=== PATIENT | female | born 1995 | race Caucasian/White ===

== ENCOUNTER 2017-10-13 09:33 | Emergency (ER) | payer MEDICAID ==
[~2017-10-13] VITALS: Ht 165.1 cm; Wt 55.0 kg
[2017-10-13 09:36] VITALS: BP 109/51; PULSE 68; RESP 18; TEMP 98.2; O2SAT 99
--- NOTE | 2017-10-13 10:08 | PD ---
HPI Chief Complaint: Related Problem Time Seen by Provider: 09:49 Travel History International Travel<30 days: No Contact w/Intl Traveler<30days: No Traveled to known affect area: No History of Present Illness HPI 22-year-old female presents the emergency department with positive test and lower abdominal cramping. Patient is , 1 miscarriage, and is concerned about her current . Last menstrual period was September 04 and it was light. She denies any nausea, vomiting, diarrhea, urinary symptoms , vaginal bleeding or discharge at this time. Pain is 6 out of 10. It is cramping in nature. She has no known drug allergies. PFSH Past Medical History Medical History: Denies Significant Hx Diminished Hearing: No Tetanus Vaccination: Unknown Influenza Vaccination: No ?: LMP: 09/04/17 : 3 Para: 1 Miscarriage: 1 Past Surgical History Other Surgery: Yes (lumpectomy of right breast) Social History Alcohol Use: No Tobacco Use: No Substance Use: No Allergies-Medications (Allergen,Severity, Reaction): Coded Allergies: No Known Allergies (Unverified , 10/13/17) Reported Meds & Prescriptions Reported Meds & Active Scripts Active Keflex (Cephalexin) 500 Mg Capsule 500 Mg PO Q8H Review of Systems Except as stated in HPI: all other systems reviewed are Neg General / Constitutional: No: Fever Eyes: No: Visual changes HENT: No: Headaches Cardiovascular: No: Chest Pain or Discomfort Respiratory: No: Shortness of Breath Gastrointestinal: No: Nausea, Vomiting, Diarrhea, Abdominal Pain Genitourinary: Positive: Pelvic Pain, No: Urgency, Frequency, Dysuria, Discharge, Vaginal Bleeding Musculoskeletal: No: Pain Skin: No Rash Neurologic: No: Weakness Psychiatric: No: Depression Endocrine: No: Polydipsia Hematologic/Lymphatic: No: Easy Bruising Physical Exam Narrative GENERAL: Patient appears in no acute distress per SKIN: Warm and dry. Normal color. Normal turgor. HEAD: Atraumatic. Normocephalic. EYES: Pupils equal and round. No scleral icterus. No injection or drainage. ENT: No nasal bleeding or discharge. Mucous membranes pink and moist. Pharynx is clear. Airways patent. NECK: Trachea midline. Supple nontender CARDIOVASCULAR: Regular rate and rhythm. RESPIRATORY: No accessory muscle use. Clear to auscultation. Breath sounds equal bilaterally. GASTROINTESTINAL: Abdomen soft, mild suprapubic tenderness, nondistended. No point tenderness or rebound. Hepatic and splenic margins not palpable. No CVA tenderness. MUSCULOSKELETAL: Extremities without clubbing, cyanosis, or edema. No obvious deformities. NEUROLOGICAL: Awake and alert. No obvious cranial nerve deficits. Motor grossly within normal limits. Five out of 5 muscle strength in the arms and legs. Normal speech. PSYCHIATRIC: Appropriate mood and affect; insight and judgment normal. Data Data Last Documented VS Vital Signs Date Time Temp Pulse Resp B/P (MAP) Pulse Ox O2 Delivery O2 Flow Rate FiO2 10/13/17 09:36 98.2 68 18 109/51 (70) 99 Orders Orders Beta Hcg (Quant/Titer) (10/13/17 09:50) Complete Blood Count With Diff (10/13/17 09:50) Comprehensive Metabolic Panel (10/13/17 09:50) Complete Rh (10/13/17 09:50) Urinalysis - C+S If Indicated (10/13/17 09:50) Iv Access Insert/Monitor (10/13/17 09:50) Ecg Monitoring (10/13/17 09:50) Urine Culture (10/13/17 10:05) Ceftriaxone Inj (Rocephin Inj) (10/13/17 11:30) Us Pelvis (Ques Pr/Ect)W Trans (10/13/17 ) Ed Discharge Order (10/13/17 13:17) Labs Laboratory Tests Test 10/13/17 10:05 White Blood Count 7.3 TH/MM3 Red Blood Count 4.13 MIL/MM3 Hemoglobin 12.9 GM/DL Hematocrit 36.8 % Mean Corpuscular Volume 89.1 FL Mean Corpuscular Hemoglobin 31.3 PG Mean Corpuscular Hemoglobin Concent 35.1 % Red Cell Distribution Width 12.3 % Platelet Count 258 TH/MM3 Mean Platelet Volume 7.9 FL Neutrophils (%) (Auto) 67.4 % Lymphocytes (%) (Auto) 22.6 % Monocytes (%) (Auto) 9.3 % Eosinophils (%) (Auto) 0.3 % Basophils (%) (Auto) 0.4 % Neutrophils # (Auto) 4.9 TH/MM3 Lymphocytes # (Auto) 1.6 TH/MM3 Monocytes # (Auto) 0.7 TH/MM3 Eosinophils # (Auto) 0.0 TH/MM3 Basophils # (Auto) 0.0 TH/MM3 CBC Comment DIFF FINAL Differential Comment Urine Color YELLOW Urine Turbidity CLOUDY Urine pH 5.5 Urine Specific [place] 1.026 Urine Protein 30 mg/dL Urine Glucose (UA) NEG mg/dL Urine Ketones TRACE mg/dL Urine Occult Blood TRACE Urine Nitrite NEG Urine Bilirubin NEG Urine Urobilinogen LESS THAN 2.0 MG/DL Urine Leukocyte Esterase LARGE Urine RBC 9 /hpf Urine WBC 27 /hpf Urine Squamous Epithelial Cells 65 /hpf Urine Amorphous Sediment RARE Urine Bacteria MANY /hpf Urine Mucus MANY /lpf Microscopic Urinalysis Comment CULTURE INDICATED Blood Urea Nitrogen 10 MG/DL Creatinine 0.56 MG/DL Random Glucose 89 MG/DL Total Protein 7.6 GM/DL Albumin 3.8 GM/DL Calcium Level 8.8 MG/DL Alkaline Phosphatase 56 U/L Aspartate Amino Transf (AST/SGOT) 11 U/L Alanine Aminotransferase (ALT/SGPT) 20 U/L Total Bilirubin 0.7 MG/DL Sodium Level 141 MEQ/L Potassium Level 3.7 MEQ/L Chloride Level 108 MEQ/L Carbon Dioxide Level 25.6 MEQ/L Anion Gap 7 MEQ/L Estimat Glomerular Filtration Rate 134 ML/MIN Human Chorionic Gonadotropin, Quant [id number] MIU/ML [facility] Medical Decision Making Medical Screen Exam Complete: Yes Emergency Medical Condition: Yes Differential Diagnosis Early . Cramping. Possible ectopic. Narrative Course Urine test here is positive. Labs ordered including CBC, CMP, urinalysis, and serum hCG. BB K is ordered. Pelvic ultrasound is ordered to rule out ectopic. CBC is unremarkable. CMP is unremarkable except for chloride of 108, AST of 11, and hCG quantitative of 102,194 Urinalysis highly suggestive of urinary tract infection, appearing cloudy, 30 protein, trace ketones, trace occult blood, large leukocyte esterase with 9 RBCs per high-power field, 27 WBCs per high-power field, many bacteria and mucus. Urine was cultured. Patient is given 1000 mg Rocephin IV. Pelvic ultrasound showed: 1. Single intrauterine gestation corresponding to 7 weeks 1 day. cardiac activity is present with heart rate of 127 bpm. 2. Trace free fluid in the pelvis. Patient discharged by Dr. clay, with Keflex 3 times daily 7 days. Patient to follow-up with reporting consultant. Diagnosis Primary Impression: Qualified Codes: Z3A.01 - Less than 8 weeks gestation of Additional Impression: Urinary tract infection Qualified Codes: N30.00 - Acute cystitis without hematuria Scripts Cephalexin (Keflex) 500 Mg Capsule 500 MG PO Q8H for Infection, #21 CAP 0 Refills Prov: Josh Espinoza MD 10/13/17 Disposition: 01 DISCHARGE HOME Condition: Stable Anthony Gunderson Oct 13, 2017 10:08
[2017-10-13 10:33] LABS: AUTOMATED NEUTROPHIL # 4.9 TH/MM3 (1.8-7.7); BASOPHIL % 0.4 % (0.0-2.0); EOSINOPHIL % 0.3 % (0.0-4.0); HEMATOCRIT 36.8 % (35.0-46.0); HEMOGLOBIN 12.9 GM/DL (11.6-15.3); LYMPH % 22.6 % (9.0-44.0); LYMPHOCYTE # 1.6 TH/MM3 (1.0-4.8); MEAN CELL VOLUME 89.1 FL (80.0-100.0); MEAN CORPUSCULAR HEMOGLOBIN 31.3 PG (27.0-34.0); MEAN CORPUSCULAR HGB CONC 35.1 % (32.0-36.0); MEAN PLATELET VOLUME 7.9 FL (7.0-11.0); MONO % 9.3 % (0.0-8.0); MONOCYTE # 0.7 TH/MM3 (0-0.9); NEUT % 67.4 % (16.0-70.0); PLATELET COUNT 258 TH/MM3 (150-450); RED BLOOD COUNT 4.13 MIL/MM3 (4.00-5.30); RED CELL DISTRIBUTION WIDTH 12.3 % (11.6-17.2); WHITE BLOOD COUNT 7.3 TH/MM3 (4.0-11.0)
[2017-10-13 10:47] LABS: ALBUMIN 3.8 GM/DL (3.4-5.0); ALT (GPT) 20 U/L (10-53); AST (GOT) 11 U/L (15-37); BICARBONATE 25.6 MEQ/L (21.0-32.0); BLOOD UREA NITROGEN 10 MG/DL (7-18); CALCIUM 8.8 MG/DL (8.5-10.1); CHLORIDE 108 MEQ/L (98-107); CREATININE 0.56 MG/DL (0.50-1.00); GLOMERULAR FILTRATION RATE 134 ML/MIN (>89); GLUCOSE,RANDOM 89 MG/DL (74-106); SODIUM (NA) 141 MEQ/L (136-145)
[2017-10-13 11:00] LABS: AMORPHOUS SEDIMENT, URINE RARE; BACTERIA, URINE MANY /hpf; BILIRUBIN, URINE NEG (NEG); BLOOD, URINE TRACE (NEG); GLUCOSE,URINE NEG (NEG); KETONE, URINE TRACE mg/dL (NEG); MUCUS URINE MANY /lpf (OCC); NITRITE,URINE NEG (NEG); PH, URINE 5.5 (5.0-8.5); SQUAMOUS EPITHELIAL CELL URINE 65 /hpf (0-5); URINE COLOR YELLOW (YELLW/STRAW); URINE LEUKOCYTE ESTERASE LARGE (NEG)
[2017-10-13 11:04] LABS: ALKALINE PHOSPHATASE 56 U/L (45-117); TOTAL BILIRUBIN ADULT 0.7 MG/DL (0.2-1.0); TOTAL PROTEIN 7.6 GM/DL (6.4-8.2)
[2017-10-13] MEDS ORDERED: cefTRIAXone INJ 1,000 MG in SODIUM CHLORIDE 0.9% INJ 100 ML IV ONE (11:30)
--- NOTE | 2017-10-13 13:09 | RADRPT ---
EXAM DATE/TIME: 10/13/2017 11:22 [place] COMPARISON: No previous studies available for comparison. INDICATIONS : Pelvic cramping. LAB(S): Beta-hC MEDICAL HISTORY : . Pelvis pain. SURGICAL HISTORY : Breast surgery at age [age]. ENCOUNTER: Initial ACUITY: 1 day PAIN SCORE: 3/10 LOCATION: Bilateral pelvis MEASUREMENTS: UTERUS: 8.7 x 6.4 x 3.9 cm ENDOMETRIAL STRIPE: 12 mm RIGHT OVARY: 3.7 x 3.1 x 2.2 cm LEFT OVARY: Not Visualized. cm FREE FLUID: Yes MADELIN CROWN RUMP LENGTH: 1.0 cm = 7 WKS 1 DAYS FHR: 127 BPM FINDINGS: UTERUS: There is an endometrial gestational sac containing a yolk sac and pole corresponding to 7 weeks 1 day. cardiac activity is present with heart rate of 127 bpm. RIGHT OVARY: Ovary contains no mass with 2.3 x 2.2 x 2.5 cm a probable corpus luteal cyst. LEFT OVARY: Not well visualized. MISCELLANEOUS: No free fluid. CONCLUSION: 1. Single intrauterine gestation corresponding to 7 weeks 1 day. cardiac activity is present wi th heart rate of 127 bpm. 2. Trace free fluid in the pelvis. Paul Cervantes MD on October 13, 2017 at 13:03 Board Certified Radiologist. This report was verified electronically.
[2017-10-13] MEDS ORDERED: CEPH-460 PO (13:19)
--- NOTE | 2017-10-13 13:19 | PD ---
Data Data Last Documented VS Vital Signs Date Time Temp Pulse Resp B/P (MAP) Pulse Ox O2 Delivery O2 Flow Rate FiO2 10/13/17 09:36 98.2 68 18 109/51 (70) 99 Orders Orders Beta Hcg (Quant/Titer) (10/13/17 09:50) Complete Blood Count With Diff (10/13/17 09:50) Comprehensive Metabolic Panel (10/13/17 09:50) Complete Rh (10/13/17 09:50) Urinalysis - C+S If Indicated (10/13/17 09:50) Iv Access Insert/Monitor (10/13/17 09:50) Ecg Monitoring (10/13/17 09:50) Urine Culture (10/13/17 10:05) Ceftriaxone Inj (Rocephin Inj) (10/13/17 11:30) Us Pelvis (Ques Pr/Ect)W Trans (10/13/17 ) Ed Discharge Order (10/13/17 13:17) Labs Laboratory Tests Test 10/13/17 10:05 White Blood Count 7.3 TH/MM3 Red Blood Count 4.13 MIL/MM3 Hemoglobin 12.9 GM/DL Hematocrit 36.8 % Mean Corpuscular Volume 89.1 FL Mean Corpuscular Hemoglobin 31.3 PG Mean Corpuscular Hemoglobin Concent 35.1 % Red Cell Distribution Width 12.3 % Platelet Count 258 TH/MM3 Mean Platelet Volume 7.9 FL Neutrophils (%) (Auto) 67.4 % Lymphocytes (%) (Auto) 22.6 % Monocytes (%) (Auto) 9.3 % Eosinophils (%) (Auto) 0.3 % Basophils (%) (Auto) 0.4 % Neutrophils # (Auto) 4.9 TH/MM3 Lymphocytes # (Auto) 1.6 TH/MM3 Monocytes # (Auto) 0.7 TH/MM3 Eosinophils # (Auto) 0.0 TH/MM3 Basophils # (Auto) 0.0 TH/MM3 CBC Comment DIFF FINAL Differential Comment Urine Color YELLOW Urine Turbidity CLOUDY Urine pH 5.5 Urine Specific [place] 1.026 Urine Protein 30 mg/dL Urine Glucose (UA) NEG mg/dL Urine Ketones TRACE mg/dL Urine Occult Blood TRACE Urine Nitrite NEG Urine Bilirubin NEG Urine Urobilinogen LESS THAN 2.0 MG/DL Urine Leukocyte Esterase LARGE Urine RBC 9 /hpf Urine WBC 27 /hpf Urine Squamous Epithelial Cells 65 /hpf Urine Amorphous Sediment RARE Urine Bacteria MANY /hpf Urine Mucus MANY /lpf Microscopic Urinalysis Comment CULTURE INDICATED Blood Urea Nitrogen 10 MG/DL Creatinine 0.56 MG/DL Random Glucose 89 MG/DL Total Protein 7.6 GM/DL Albumin 3.8 GM/DL Calcium Level 8.8 MG/DL Alkaline Phosphatase 56 U/L Aspartate Amino Transf (AST/SGOT) 11 U/L Alanine Aminotransferase (ALT/SGPT) 20 U/L Total Bilirubin 0.7 MG/DL Sodium Level 141 MEQ/L Potassium Level 3.7 MEQ/L Chloride Level 108 MEQ/L Carbon Dioxide Level 25.6 MEQ/L Anion Gap 7 MEQ/L Estimat Glomerular Filtration Rate 134 ML/MIN Human Chorionic Gonadotropin, Quant [id number] MIU/ML MDM Supervised Visit with STIVEN: Yes Narrative Course The history, exam, and medical decision-making in the associated mid-level provider note were completed with my assistance. I reviewed and agree with the findings presented. I attest that I had a [id number] encounter with the patient on the same day, and personally performed and documented my assessment and findings in the medical record. *My assessment and Findings: 22-year-old woman, , abdominal pain, ultrasound shows intrauterine with good heartbeat. UA with some pyuria. Recommend antibiotic treatment. Recommend outpatient follow-up. Diagnosis Primary Impression: Additional Impression: Urinary tract infection Qualified Codes: N30.00 - Acute cystitis without hematuria Additional Instruction: Take antibiotics as prescribed. Take [id number] vitamins. Follow-up with her primary doctor in the next 2-4 days. Med/Other Pt SpecificInfo: Prescription(s) given Scripts Cephalexin (Keflex) 500 Mg Capsule 500 MG PO Q8H for Infection, #21 CAP 0 Refills Prov: Josh Espinoza MD 10/13/17 Disposition: 01 DISCHARGE HOME Condition: Stable Josh Espinoza MD Oct 13, 2017 13:19
== END 2017-10-13 14:36 | disposition home or self-care (01) ==
LOC: NEPD 09:33
DX: O23.91 Unspecified genitourinary tract infection in pregnancy, first trimester (principal); Z3A.01 Less than 8 weeks gestation of pregnancy
CPT/HCPCS: 76700; 76817; 80053; 81001; 84702; 85025; 86901; 87086; 96365; 99284; J0696

== ENCOUNTER → 2017-12-08 | Outpatient (CLI) | payer OTHER ==
[~2017-12-08] MED LIST: CEPH-460 PO
[2017-12-08 12:35] LABS: BASOPHIL % 0.7 % (0.0-2.0); EOSINOPHIL % 0.8 % (0.0-4.0); HEMOGLOBIN 11.2 GM/DL (11.6-15.3); LYMPH % 26.7 % (9.0-44.0); LYMPHOCYTE # 1.2 TH/MM3 (1.0-4.8); MEAN CELL VOLUME 89.4 FL (80.0-100.0); MEAN CORPUSCULAR HEMOGLOBIN 32.2 PG (27.0-34.0); MEAN PLATELET VOLUME 7.7 FL (7.0-11.0); MONOCYTE # 0.3 TH/MM3 (0-0.9); NEUT % 65.8 % (16.0-70.0); PLATELET COUNT 252 TH/MM3 (150-450); RED BLOOD COUNT 3.47 MIL/MM3 (4.00-5.30); RED CELL DISTRIBUTION WIDTH 12.9 % (11.6-17.2); WHITE BLOOD COUNT 4.5 TH/MM3 (4.0-11.0)
== END ==
LOC: ELAB 10:26
PROVIDERS: ATTEND Advanced Practice Midwife
DX: Z34.01 Encounter for supervision of normal first pregnancy, first trimester (principal)
CPT/HCPCS: 36415; 84443; 85025; 86592; 86762; 86787; 86850; 86900; 86901; 87086; 87340

== ENCOUNTER 2018-05-20 06:21 | Inpatient (IN) ==
[2018-05-20] MEDS ORDERED: Oxytocin 30 Units/500ml Premix 30 UNITS/500 ML BAG ONE (06:36)
[2018-05-20] MEDS ORDERED: Lidocaine 1% Inj 50 ML Vial ONE (06:36)
[2018-05-20] MEDS ORDERED: Sod Chloride 0.9% Inj 1,000 ML IV.CONT PRN (07:10)
[2018-05-20] MEDS ORDERED: fentaNYL Citrate Inj 100 MCG/2 ML Ampul IV.PUSH PRN ×2 (07:10)
[2018-05-20] MEDS ORDERED: Naloxone Inj 0.4 MG/ML Vial IV.PUSH PRN ×2 (07:10→08:46)
[2018-05-20] MEDS ORDERED: Sodium Chlor 0.9% Inj 500 ML IV.SIG PRN (07:10)
[2018-05-20] MEDS ORDERED: Oxytocin 30 Units/500ml Premix 30 UNITS/500 ML BAG IV.SIG ONE (07:10)
[2018-05-20 07:11] LABS: Baso % (Auto) 0.3 % (0.0-2.0); Eos % (Auto) 0.4 % (0.0-4.0); Hemoglobin 11.1 gm/dL (11.6-15.3); Lymph # (Auto) 1.9 th/mm3 (1.0-4.8); Lymph % (Auto) 19.9 % (9.0-44.0); Mean Corpuscular HGB Conc 35.7 % (32.0-36.0); Mean Corpuscular Hemoglobin 32.3 pg (27.0-34.0); Mean Corpuscular Volume 90.3 fL (80.0-100.0); Mean Platelet Volume 8.2 fL (7.0-11.0); Mono # (Auto) 0.7 th/mm3 (0.0-0.9); Neut # (Auto) 6.8 th/mm3 (1.8-7.7); Neut % (Auto) 72.4 % (16.0-70.0); Platelet Count 212 th/mm3 (150-450); Red Blood Count 3.43 mil/mm3 (4.00-5.30); Red Cell Distribution Width 12.9 % (11.6-17.2); White Blood Count 9.3 th/mm3 (4.0-11.0)
[2018-05-20] MEDS ORDERED: Sodium Chloride 0.9% 2 ML Flush PRN IV.FLUSH (07:15)
[2018-05-20] MEDS ORDERED: Citric Acid/Sodium Citrate Liq 30 ML UDC PO SCH (07:15)
--- NOTE | 2018-05-20 07:17 | P.HPOB ---
History of Present Illness Primary Care Physician: NOT REQUIRED History of Present Illness: 22-year-old 2 para 1 at 38+ wks who comes with contractions and report of ruptured membranes last night between 8 and 9 PM. She denies bleeding. care [facility] provided by [facility]. It has been uncomplicated. Her first was a term vaginal delivery without complication. She is GBS negative. - Inpatient Certification I certify that the inpatient services were ordered in accordance with Medicare regulations governing the order. This includes certification that hospital inpatient services are reasonable and necessary and in the case of services not specified as inpatient-only under 42 CFR 419.22(n), that they are appropriately provided as inpatient services in accordance to with the 2-midnight benchmark under 43 CFR 412.3(e) Estimated Total Length of Stay (Days): 3 Plans for Post Hospital Care: Home Review of Systems All other systems reviewed negative except as stated in HPI PMFSH - Medical / Surgical Hx Neg / Unobtainable Medical Problems Denied: Yes Surgical History: No Previous Surgery - Immunization History Hx Influenza Vaccine This Season: Yes Medications and Allergies Active Medications: Active Medications Citric Acid/Sodium Citrate (Sodium Citrate/Citric Acid Liq) 30 ml PO ACCOUNTS ADMINISTRATOR SANDY Stop: 05/24/18 07:14 Fentanyl Citrate (Fentanyl Inj) 50 mcg IV.PUSH Q1H PRN PRN Reason: Pain Scale 3 - 5 Fentanyl Citrate (Fentanyl Inj) 100 mcg IV.PUSH Q1H PRN PRN Reason: PAIN SCALE 6 TO 10 Lactated Ringer's (Lr 1000 Ml Inj) 1,000 mls @ 125 mls/hr IV.CONT .Q8H SANDY Sodium Chloride (Ns Inj) 500 mls @ 1,000 mls/hr IV.SIG UNSCH PRN PRN Reason: SEE LABEL COMMENTS Sodium Chloride (Ns Inj) 1,000 mls @ 100 mls/hr IV.CONT .Q10H PRN PRN Reason: SEE LABEL COMMENTS Oxytocin (Pitocin 30 Units/Ns 500 Ml Premix) 30 units in 500 mls @ 999 mls/hr IV.SIG BOLUS ONE Stop: 05/20/18 07:40 Lactated Ringer's (Lr 1000 Ml Inj) 1,000 mls @ 3,000 mls/hr IV.SIG UNSCH PRN PRN Reason: compromise or epidural Lidocaine HCl (Xylocaine 1% Inj) 0.1 ml I-DERMAL PRN PRN PRN Reason: For IV start Stop: 05/23/18 07:09 Lidocaine HCl (Xylocaine 1% Inj) 10 ml INFILTRATN PRN PRN PRN Reason: For episiotomy repair Stop: 05/22/18 07:09 Mineral Oil (Muri-Lube Oil) 10 ml TOPICAL PRN PRN PRN Reason: PRN perineal massage Naloxone HCl (Narcan Inj) 0.1 mg IV.PUSH Q2M PRN PRN Reason: for opiate reversal Ondansetron HCl (Zofran Inj) 4 mg IV.PUSH Q6H PRN PRN Reason: NAUSEA OR VOMITING Allergies Allergy/AdvReac Type Severity Reaction Status Date / Time No Known Allergies Allergy Unverified 10/13/17 09:50 Home Medications Medication Instructions Recorded Confirmed Type No Known Home Medications 05/20/18 05/20/18 History Exam Vital signs: Vital Signs 05/20/18 06:51 05/20/18 07:00 Temperature 97.4 F L Pulse Rate 87 Blood Pressure 132/97 H Intake & Output 05/19/18 05/20/18 05/20/18 18:59 06:59 18:59 Weight 68.039 kg Narrative: GENERAL: Well-nourished, well-developed patient. SKIN: Warm and dry. HEAD: Normocephalic and atraumatic. EYES: No scleral icterus. No injection or drainage. ENT: No nasal drainage noted. Mucous membranes pink. Airway patent. NECK: Supple, trachea midline. No JVD. CARDIOVASCULAR: Regular rate and rhythm without murmurs, gallops, or rubs. RESPIRATORY: Breath sounds equal bilaterally. No accessory muscle use. ABDOMEN/GI: Abdomen soft, non-tender, bowel sounds present, no rebound, no guarding Gravid to [-] weeks size Fundal Height: [-] GENITOURINARY: External Genitalia: intact and normal in appearance BUS glands: [-] Cervix: [-] Dilatation: [7-] Effacement: [-100] Station: [--2] Presentation: [-vtx] Membranes: [ ruptured] Uterine Contractions: [-q2-3] FHT's: Category: [1-] Baseline: [-] Reactive: [y-] Variability: [-] Decels: [-] EXTREMITIES: No cyanosis or edema. BACK: Nontender without obvious deformity. No CVA tenderness. NEUROLOGICAL: Awake and alert. Motor and sensory grossly within normal limits. Five out of 5 muscle strength in all muscle groups. Normal speech. Results - Labs CBC & Chem 7: 05/20/18 06:30 Labs: Laboratory Results - last 24 hr 05/20/18 06:30 WBC 9.3 RBC 3.43 L Hgb 11.1 L Hct 31.0 L MCV 90.3 MCH 32.3 MCHC 35.7 RDW 12.9 Plt Count 212 MPV 8.2 Neut % (Auto) 72.4 H Lymph % (Auto) 19.9 Rankin % (Auto) 7.0 Eos % (Auto) 0.4 Baso % (Auto) 0.3 Neut # (Auto) 6.8 Lymph # (Auto) 1.9 [place] # (Auto) 0.7 Eos # (Auto) 0.0 Baso # (Auto) 0.0 WBC Differential . Differential Comment Auto diff final Caprini VTE Risk Assessment Caprini VTE Risk Assessment: No/Low Risk (score <= 1) Caprini Risk Assessment Model: Point Value = 1 Point Value = 2 Point Value = 3 Point Value = 5 Age 41-60 Minor surgery BMI > 25 kg/m2 Swollen legs Varicose veins or History of unexplained or recurrent spontaneous Oral contraceptives or hormone replacement Sepsis (< 1 month) Serious lung disease, including pneumonia (< 1 month) Abnormal pulmonary function Acute myocardial infarction Congestive heart failure (< 1 month) History of inflammatory bowel disease Medical patient at bed rest Age 61-74 Arthroscopic surgery Major open surgery (> 45 min) Laparoscopic surgery (> 45 min) Malignancy Confined to bed (> 72 hours) Immobilizing plaster cast Central venous access Age >= 75 History of VTE Family history of VTE Factor V Leiden Prothrombin [id number] Lupus anticoagulant Anticardiolipin antibodies Elevated serum homocysteine Heparin-induced thrombocytopenia Other congenital or acquired thrombophilia Stroke (< 1 month) Elective arthroplasty Hip, pelvis, or leg fracture Acute spinal cord injury (< 1 month) Prophylaxis Regimen: Total Risk Factor Score Risk Level Prophylaxis Regimen 0-1 Low Early ambulation 2 Moderate Order ONE of the following: *Sequential Compression Device (SCD) *Heparin 5000 units SQ BID 3-4 Higher Order ONE of the following medications: *Heparin 5000 units SQ TID *Enoxaparin/Lovenox 40 mg SQ daily (WT < 150 kg, CrCl > 30 mL/min) *Enoxaparin/Lovenox 30 mg SQ daily (WT < 150 kg, CrCl > 10-29 mL/min) *Enoxaparin/Lovenox 30 mg SQ BID (WT < 150 kg, CrCl > 30 mL/min) AND/OR *Sequential Compression Device (SCD) 5 or more Highest Order ONE of the following medications: *Heparin 5000 units SQ TID (Preferred with Epidurals) *Enoxaparin/Lovenox 40 mg SQ daily (WT < 150 kg, CrCl > 30 mL/min) *Enoxaparin/Lovenox 30 mg SQ daily (WT < 150 kg, CrCl > 10-29 mL/min) *Enoxaparin/Lovenox 30 mg SQ BID (WT < 150 kg, CrCl > 30 mL/min) AND *Sequential Compression Device (SCD) Assessment and Plan - Plan Assessment: Term intrauterine in active labor, category 1 heart rate Plan: Expect vaginal delivery.
[2018-05-20] MEDS ORDERED: Oxytocin 30 Units/500ml Premix 30 UNITS/500 ML BAG IV.CONT PRN (08:46)
[2018-05-20] MEDS ORDERED: Bisacodyl 10 MG Supp RECTAL PRN (08:46)
[2018-05-20] MEDS ORDERED: Witch Hazel 50%/Glyderin 12.5% 40 Pad Jar RECTAL PRN (08:46)
[2018-05-20] MEDS ORDERED: Benzocaine 20% Top Spray 60 ML Can TOPICAL PRN (08:46)
[2018-05-20] MEDS ORDERED: Zolpidem Tartrate 5 MG Tablet PO PRN (08:46)
--- NOTE | 2018-05-20 08:52 | P.OBDELI ---
Weeks Gestation: 38 Patient Started Active Labor: Yes Active Labor Start Date: 05/20/18 Medical Induction of Labor: No Artificial Rupture of Membrane: No Anesthesia: None Episiotomy: none Vaginal Delivery: Normal, Spontaneous Presentation: Occiput anterior Nuchal Cord: None Delayed Cord Clamping (45 sec): Yes Placenta: Spontaneous delivery, Intact, 3 vessel cord Laceration: 1 deg Estimated blood loss (mL): 200 Infant: Male Male A Infant Delivery Date: 05/20/18 Infant Delivery Time: 08:35 Weight: 3.565 kg score (1 min): 9 score (5 min): 9
[2018-05-20] MEDS: Senna/Docusate Sodium 8.6/50 MG Tablet PO SCH ×2 (10:28→21:20)
[2018-05-20] MEDS: Sodium Chloride 0.9% 2 ML Flush BID IV.FLUSH SCH ×2 (10:28→21:21)
[2018-05-20] MEDS ORDERED: Diphtheria/Tetanus/Pertussis Vaccine Inj 0.5 ML Syringe IM ONE (16:00)
[2018-05-20] MEDS ORDERED: Measles/Mumps/Rubella Vaccine Inj 0.5 ML Vial SQ ONE (16:00)
[2018-05-20 17:33] LABS: Amphetamine Urine With Conf Neg (Neg); Benzodiazepine Urine With Conf Neg (Neg)
[2018-05-20 17:35] LABS: Bilirubin,Urine Negative (Negative); Clarity,Urine Hazy (Clear); Color,Urine Red (Yellw/Straw); Glucose,Urine (UA) 50 mg/dL (Negative); Leukocyte Esterase,Urine Small (Negative); Mucus,Urine Few /lpf (Occasional); Nitrite,Urine Negative (Negative); Specific Gravity,Urine 1.008 (1.002-1.035)
[2018-05-20] MEDS: Acetaminophen 325 MG Tablet PO PRN (17:45)
[2018-05-21] MEDS: Acetaminophen 325 MG Tablet PO PRN (03:20)
--- NOTE | 2018-05-21 08:15 | P.PNOB ---
Subjective Post day: 1 Interval history: Patient is a 22 y/o at 38/3 weeks gestation. Patient is day 1 after . Patient's pain is well-controlled. Patient reports eating and drinking without any nausea or vomiting. Patient reports minimal bleeding. Patient has passed gas but no bowel movements. Patient is walking without lower extremity pain or shortness of breath. Patient reports desire for contraception. She denies any chest pain. Objective Vital Signs/I&O: Vital Signs 05/20/18 08:49 05/20/18 09:01 05/20/18 09:09 Temperature 97.7 F Pulse Rate 104 H 104 H Respiratory Rate 18 18 Blood Pressure 122/67 112/64 05/20/18 09:16 05/20/18 09:30 05/20/18 09:45 Temperature Pulse Rate 87 81 Respiratory Rate 18 18 Blood Pressure 110/58 L 115/67 05/20/18 10:10 05/20/18 18:55 Temperature 98.0 F 98.0 F Pulse Rate 74 76 Respiratory Rate 16 17 Blood Pressure 112/56 L 100/52 L Result Diagrams: 05/20/18 06:30 Objective Remarks: GENERAL: Well-nourished, well-developed patient. CARDIOVASCULAR: Regular rate and rhythm without murmurs, gallops, or rubs. RESPIRATORY: Breath sounds equal bilaterally. No accessory muscle use. ABDOMEN/GI: Abdomen soft, non-tender. Fundus: Firm, non-tender at umbilicus. GENITOURINARY: Light to moderate bleeding. EXTREMITIES: No cyanosis or edema, non-tender, without signs of DVT. Medications and IVs: Active Medications Acetaminophen (Tylenol) 650 mg PO Q4H PRN PRN Reason: PAIN SCALE 1 TO 2 Last Admin: 05/21/18 03:20 Dose: 650 mg Al Hydroxide/Mg Hydroxide (Milk Of Magnesia Liq) 30 ml PO Q12H PRN PRN Reason: Mild Constipation Benzocaine (Americaine 20% [place]) 1 spray TOPICAL Q4H PRN PRN Reason: For Perineum Discomfort Bisacodyl (Dulcolax Supp) 10 mg RECTAL DAILY PRN PRN Reason: SEVERE CONSITIPATION Oxytocin (Pitocin 30 Units/Ns 500 Ml Premix) 30 units in 500 mls @ 100 mls/hr IV.CONT UNSCH PRN PRN Reason: Heavy bleeding Ibuprofen (Motrin) 800 mg PO Q8H PRN PRN Reason: For Cramping Last Admin: 05/21/18 03:20 Dose: 800 mg Lactulose (Lactulose Liq) 30 ml PO DAILY PRN PRN Reason: SEVERE CONSITIPATION Naloxone HCl (Narcan Inj) 0.1 mg IV.PUSH Q2M PRN PRN Reason: for opiate reversal Ondansetron HCl (Zofran Odt) 4 mg PO Q6H PRN PRN Reason: NAUSEA OR VOMITING Senna/Docusate Sodium (Qian-Colace) 1 tab PO BID [facility] Last Admin: 05/20/18 21:20 Dose: 1 tab Sennosides (Senokot) 17.2 mg PO Q12H PRN PRN Reason: Moderate Constipation Sodium Chloride (Ns Flush) 2 ml IV.FLUSH BID [facility] Last Admin: 05/20/18 21:21 Dose: 2 ml Sodium Chloride (Ns Flush) 2 ml IV.FLUSH PRN PRN PRN Reason: FLUSH AFTER USING IV ACCESS Witch Crystal/Glycerin (Tucks Pads) 1 applicatio RECTAL QID PRN PRN Reason: HEMORRHOIDS Zolpidem Tartrate (Ambien) 5 mg PO HS PRN PRN Reason: SLEEP Assessment and Plan - Plan Patient is a 22 year-old delivered at 38/3 weeks gestation. Patient is day 1 after . Continue routine care. Motrin and Tylenol as needed for pain. Encourage OOB Pelvic rest for 6 weeks will need follow-up appointment at that time. Contraception: Patient considering options. appropriately. Anticipate discharge tomorrow phuw Dr. Lexi juan OB attending, Dr. Mcclain
[2018-05-21] MEDS: Senna/Docusate Sodium 8.6/50 MG Tablet PO SCH ×2 (08:45→20:08)
[2018-05-21] MEDS: Sodium Chloride 0.9% 2 ML Flush BID IV.FLUSH SCH (20:09)
[2018-05-21] MEDS ORDERED: Diphtheria/Tetanus/Pertussis Vaccine Inj 0.5 ML Syringe IM ONE (22:45)
--- NOTE | 2018-05-22 08:26 | P.PNOB ---
Subjective Interval history: Patient is a 22-year-old delivered at 38 weeks and 3 days. Patient is day 2 after NVD. Patient's pain is well-controlled. Patient reports minimal bleeding. Patient reports eating and drinking without any nausea or vomiting. Patient has passed gas but has not had a bowel movement. Patient denies chest pain and shortness of breath. Patient has been ambulating; she denies lower extremity pain. Patient reports desire for contraception, which she will discuss with her PCP at her first follow-up visit. Patient has decided to breast-feed. Objective Vital Signs/I&O: Vital Signs 05/21/18 08:55 05/21/18 20:00 05/22/18 08:00 Temperature 98.2 F 98.1 F 97.9 F Pulse Rate 76 73 70 Respiratory Rate 16 Blood Pressure 94/51 L 104/65 120/71 Intake & Output 05/21/18 05/22/18 05/22/18 18:59 06:59 18:59 Intake Total Balance Intake: Intake (Blood Product) Amt Rho(D) Immune Globulin Unit [id number] Result Diagrams: 05/20/18 06:30 Objective Remarks: GENERAL: Well-nourished, well-developed patient. CARDIOVASCULAR: Regular rate and rhythm without murmurs, gallops, or rubs. RESPIRATORY: Breath sounds equal bilaterally. No accessory muscle use. ABDOMEN/GI: Abdomen soft, non-tender. Fundus: Firm, non-tender at umbilicus. GENITOURINARY: Light to moderate bleeding. EXTREMITIES: No cyanosis or edema, non-tender, without signs of DVT. Medications and IVs: Active Medications Acetaminophen (Tylenol) 650 mg PO Q4H PRN PRN Reason: PAIN SCALE 1 TO 2 Last Admin: 05/21/18 03:20 Dose: 650 mg Al Hydroxide/Mg Hydroxide (Milk Of Magnesia Liq) 30 ml PO Q12H PRN PRN Reason: Mild Constipation Benzocaine (Americaine 20% [place]) 1 spray TOPICAL Q4H PRN PRN Reason: For Perineum Discomfort Last Admin: 05/21/18 20:09 Dose: 1 spray Bisacodyl (Dulcolax Supp) 10 mg RECTAL DAILY PRN PRN Reason: SEVERE CONSITIPATION Oxytocin (Pitocin 30 Units/Ns 500 Ml Premix) 30 units in 500 mls @ 100 mls/hr IV.CONT UNSCH PRN PRN Reason: Heavy bleeding Ibuprofen (Motrin) 800 mg PO Q8H PRN PRN Reason: For Cramping Last Admin: 05/21/18 20:08 Dose: 800 mg Lactulose (Lactulose Liq) 30 ml PO DAILY PRN PRN Reason: SEVERE CONSITIPATION Naloxone HCl (Narcan Inj) 0.1 mg IV.PUSH Q2M PRN PRN Reason: for opiate reversal Ondansetron HCl (Zofran Odt) 4 mg PO Q6H PRN PRN Reason: NAUSEA OR VOMITING Senna/Docusate Sodium (Qian-Colace) 1 tab PO BID [facility] Last Admin: 05/21/18 20:08 Dose: 1 tab Sennosides (Senokot) 17.2 mg PO Q12H PRN PRN Reason: Moderate Constipation Sodium Chloride (Ns Flush) 2 ml IV.FLUSH BID [facility] Last Admin: 05/21/18 20:09 Dose: Not Given Sodium Chloride (Ns Flush) 2 ml IV.FLUSH PRN PRN PRN Reason: FLUSH AFTER USING IV ACCESS Witch Crystal/Glycerin (Tucks Pads) 1 applicatio RECTAL QID PRN PRN Reason: HEMORRHOIDS Last Admin: 05/21/18 20:08 Dose: 1 applicatio Zolpidem Tartrate (Ambien) 5 mg PO HS PRN PRN Reason: SLEEP Assessment and Plan - Plan Patient is a 22-year-old delivered at 38 weeks and 3 days. Patient is day 2 after NVD. Continue routine care. Motrin and Percocet when necessary for pain. Encourage OOB. Pelvic rest for 6 weeks will need follow-up appointment at that time. Contraception: To discuss with OB provider. Anticipate discharge today. [email or web address] OB hospitalist
[2018-05-22] MEDS: Senna/Docusate Sodium 8.6/50 MG Tablet PO SCH (09:00)
[2018-05-22] MEDS: Sodium Chloride 0.9% 2 ML Flush BID IV.FLUSH SCH (09:50)
== END 2018-05-22 13:05 | disposition home or self-care (01) ==
LOC: HOBED 06:21 → H1EA 06:32 → H2E 06:32 → H1EA 09:57
PROVIDERS: ADMIT Obstetrics & Gynecology; ATTEND Obstetrics & Gynecology